=== PATIENT | male | born 1980 | race Caucasian/White ===

== ENCOUNTER 2017-10-02 11:06 | Emergency (ER) | payer SELFPAY ==
--- NOTE | 2017-10-02 11:26 | ER Document Report ---
ED Medical Screen (RME) - General Chief Complaint: Chest Pain Stated Complaint: CHEST PAIN Time Seen by Provider: 10/02/17 11:23 Mode of Arrival: Ambulatory Information source: Patient TRAVEL OUTSIDE OF THE [place] IN LAST 30 DAYS: No - HPI Patient complains to provider of: CP Onset: This morning - Pt developedd SSCP while at work earlier today ("feels like a wt. on my chest") with radiation down L arm. Has taken ASA already - Related Data Allergies/Adverse Reactions: No Known Allergies Allergy (Unverified 10/02/17 11:10) Past Medical History Renal/ Medical History: Denies: Hx Peritoneal Dialysis Physical Exam - Vital signs Vitals: Temp Pulse Resp BP Pulse Ox 97.8 F 100 20 134/92 H 99 10/02/17 11:09 10/02/17 11:09 10/02/17 11:09 10/02/17 11:09 10/02/17 11:09 Course - Vital Signs Vital signs: Temp Pulse Resp BP Pulse Ox 97.8 F 100 20 134/92 H 99 10/02/17 11:09 10/02/17 11:09 10/02/17 11:09 10/02/17 11:09 10/02/17 11:09
--- NOTE | 2017-10-02 11:46 | RADIOLOGY REPORT (SQ) ---
EXAM DESCRIPTION: CHEST PA/LAT COMPLETED DATE/TIME: 10/02/2017 11:37 am REASON FOR STUDY: CP COMPARISON: None. EXAM PARAMETERS: NUMBER OF VIEWS: two views TECHNIQUE: Digital Frontal and Lateral radiographic views of the chest acquired. RADIATION DOSE: NA LIMITATIONS: none FINDINGS: LUNGS AND PLEURA: No opacities, masses or pneumothorax. No pleural effusion. MEDIASTINUM AND HILAR STRUCTURES: No masses or contour abnormalities. HEART AND VASCULAR STRUCTURES: Heart normal size. No evidence for failure. BONES: No acute findings. HARDWARE: None in the chest. OTHER: On the lateral view, a 3 cm peripherally calcified nodule is present which could be a large ga llstone in the gallbladder. IMPRESSION: NO SIGNIFICANT RADIOGRAPHIC FINDING IN THE CHEST. Question calcified right upper quadrant gallstone at the bottom edge of the field of view TECHNICAL DOCUMENTATION: JOB ID: [id number] [employer] acquired by [employer]- All Rights Reserved
[2017-10-02 12:14] LABS: ABSOLUTE BASOPHILS # (AUTO) 0.1 10^3/uL (0.0-0.2); ABSOLUTE EOSINOPHILS # (AUTO) 0.3 10^3/uL (0.0-0.6); ABSOLUTE LYMPHOCYTES (AUTO) 2.4 10^3/uL (0.5-4.7); ABSOLUTE MONOCYTES (AUTO) 0.9 10^3/uL (0.1-1.4); ABSOLUTE NEUT (AUTO) 7.4 10^3/uL (1.7-8.2); BASOPHILS % (AUTO) 0.7 % (0-2); EOSINOPHILS % (AUTO) 2.8 % (0-6); HEMATOCRIT 43.9 % (37.9-51.0); HEMOGLOBIN 14.8 g/dL (13.5-17.0); HGB HCT DIFFERENCE 0.5; LYMPHOCYTES % (AUTO) 21.3 % (13-45); MEAN CORPUSCULAR HEMOGLOBIN 28.8 pg (27.0-33.4); MEAN CORPUSCULAR HGB CONC 33.8 g/dL (32.0-36.0); MEAN CORPUSCULAR VOLUME 85 fl (80-97); RED BLOOD COUNT 5.16 10^6/uL (4.35-5.55); SEGMENTED NEUTROPHILS % (AUTO) 67.2 % (42-78); WHITE BLOOD COUNT 11.1 10^3/uL (4.0-10.5)
[2017-10-02 12:36] LABS: ALANINE AMINOTRANSFERASE 40 U/L (21-72); ALBUMIN 4.4 g/dL (3.5-5.0); ALKALINE PHOSPHATASE 77 U/L (38-126); ANION GAP 12 (5-19); ASPARTATE AMINO TRANSFERASE 30 U/L (17-59); BILIRUBIN,DIRECT 0.4 mg/dL (0.0-0.4); BILIRUBIN,TOTAL 0.6 mg/dL (0.2-1.3); BLOOD UREA NITROGEN 16 mg/dL (7-20); CALCIUM 9.1 mg/dL (8.4-10.2); CARBON DIOXIDE 29 mmol/L (22-30); CHLORIDE 104 mmol/L (98-107); CREATINE KINASE 172 U/L (55-170); CREATININE RESULT 1.17 mg/dL (0.52-1.25); GLUCOSE 109 mg/dL (75-110); POTASSIUM 4.1 mmol/L (3.6-5.0); SODIUM 145.4 mmol/L (137-145); TOTAL PROTEIN 7.7 g/dL (6.3-8.2)
[2017-10-02 12:47] LABS: CREATINE KINASE MB 0.72 ng/mL (<4.55)
[2017-10-02 12:48] LABS: TROPONIN I < 0.012 ng/mL
--- NOTE | 2017-10-02 13:01 | EKG REPORT ---
SEVERITY:- ABNORMAL ECG - SINUS RHYTHM NONSPECIFIC T ABNORMALITIES, INFERIOR LEADS : Confirmed by: Misael Shipman MD 02-Oct-2017 13:00:38
[2017-10-02] MEDS ORDERED: NORMAL SALINE 1000 ML 1,000 ML IV ONE (13:19)
--- NOTE | 2017-10-02 14:44 | RADIOLOGY REPORT (SQ) ---
EXAM DESCRIPTION: U/S ABDOMEN LIMITED W/O DOP COMPLETED DATE/TIME: 10/02/2017 2:32 pm REASON FOR STUDY: ruq pain n/v COMPARISON: None. TECHNIQUE: Dynamic and static grayscale images acquired of the right upper quadrant and recorded on PACS. Additional selected color Doppler and spectral images recorded. LIMITATIONS: Study limited due to acoustical interference from fat or from air in the bowel. FINDINGS: PANCREAS: Not visualized. LIVER: No masses. Echotexture normal. LIVER VASCULATURE: Normal directional flow of the main portal vein and hepatic veins. GALLBLADDER: No stones. Normal wall thickness. No pericholecystic fluid. ULTRASOUND-DETECTED LANDAVERDE'S SIGN: Negative. INTRAHEPATIC DUCTS AND COMMON DUCT: CBD and intrahepatic ducts normal caliber. No filling defects. INFERIOR VENA CAVA: Normal flow. AORTA: No aneurysm. RIGHT KIDNEY: Normal size. Normal echogenicity. No solid or suspicious masses. No hydronephrosis. No calcifications. PERITONEAL CAVITY AND RIGHT PLEURAL SPACE: No ascites or effusions. OTHER: No other significant finding. IMPRESSION: NORMAL RIGHT UPPER QUADRANT ULTRASOUND. PANCREAS NOT VISUALIZED. TECHNICAL DOCUMENTATION: JOB ID: [id number] [employer]- All Rights Reserved
[2017-10-02 15:32] VITALS: BP 135/81
--- NOTE | 2017-10-02 15:40 | ER Document Report ---
ED General - General Chief Complaint: Chest Pain Stated Complaint: CHEST PAIN Time Seen by Provider: 10/02/17 11:23 Mode of Arrival: Ambulatory TRAVEL OUTSIDE OF THE [place] IN LAST 30 DAYS: No - HPI Patient complains to provider of: Abdominal pain chest pain Notes: Patient coming in for evaluation of chest pain also states on chronic abdominal pain. Patient states chest pain this morning upon awaking 6:00. Patient states had breakfast worsening of pain however when work pain continued to increase therefore came to the ER for further evaluation. Patient states has a history of diverticulitis patient has never seen a GI specialist before. Patient states he takes a handful of Aleve and Motrin to help out with his chronic pain. Patient states he is to be on Neurontin for his pain however since recently moving to the area is not substance of the PCP has not taken Neurontin "for a while". Denies any fevers chills states slight nauseous feeling with the pain. Patient also states pain this morning was in epigastric and right upper quadrant region. Patient resting comfortably upon my evaluation no signs of any obvious distress. Currently pain-free - Related Data Allergies/Adverse Reactions: No Known Allergies Allergy (Unverified 10/02/17 11:10) Past Medical History - General Information source: Patient - Social History Smoking Status: Never Smoker Chew tobacco use (# tins/day): No Frequency of alcohol use: None Drug Abuse: None Family History: Reviewed & Not Pertinent Patient has suicidal ideation: No Patient has homicidal ideation: No - Past Medical History Cardiac Medical History: Reports: Hx Hypercholesterolemia, Hx Hypertension Renal/ Medical History: Denies: Hx Peritoneal Dialysis Review of Systems - Review of Systems Constitutional: No symptoms reported EENT: No symptoms reported Cardiovascular: Chest pain Respiratory: No symptoms reported Gastrointestinal: Abdominal pain Genitourinary: No symptoms reported Male Genitourinary: No symptoms reported Musculoskeletal: No symptoms reported Skin: No symptoms reported Hematologic/Lymphatic: No symptoms reported Neurological/Psychological: No symptoms reported -: Yes All other systems reviewed and negative Physical Exam - Vital signs Vitals: Temp Pulse Resp BP Pulse Ox 97.8 F 100 20 134/92 H 99 10/02/17 11:09 10/02/17 11:09 10/02/17 11:09 10/02/17 11:09 10/02/17 11:09 Interpretation: Normal - General General appearance: Appears well, Alert - HEENT Head: Normocephalic, Atraumatic Eyes: Normal Pupils: PERRL - Respiratory Respiratory status: No respiratory distress Chest status: Nontender Breath sounds: Normal Chest palpation: Normal - Cardiovascular Rhythm: Regular Heart sounds: Normal auscultation Murmur: No - Abdominal Inspection: Normal Distension: No distension Bowel sounds: Normal Tenderness: Tender - Mild tenderness in her upper quadrant no rebound guarding noted McBurney point tenderness no Belle sign. Organomegaly: No organomegaly - Back Back: Normal, Nontender - Extremities General upper extremity: Normal inspection, Nontender, Normal color, Normal ROM , Normal temperature General lower extremity: Normal inspection, Nontender, Normal color, Normal ROM , Normal temperature, Normal weight bearing. No: Rick's sign - Neurological Neuro grossly intact: Yes Cognition: Normal Orientation: AAOx4 [place] Coma Scale Eye Opening: Spontaneous [place] Coma Scale Verbal: Oriented [place] Coma Scale Motor: Obeys Commands Diana Coma Scale Total: 15 Speech: Normal Motor strength normal: LUE, RUE, LLE, RLE Sensory: Normal - Psychological Associated symptoms: Normal affect, Normal mood - Skin Skin Temperature: Warm Skin Moisture: Dry Skin Color: Normal Course - Re-evaluation Re-evalutation: 10/02/17 15:49 The patient presents with abdominal pain without signs of peritonitis or other life-threatening or serious etiology. The patient appears stable for discharge and has been instructed to return immediately if the symptoms worsen in any way , or in 8-12hr if not improved for re-evaluation. The patient has been instructed to return if the symptoms worsen or change in any way. The patient has atypical chest pain as the patient's chest pain is not suggestive of pulmonary embolus, cardiac ischemia, aortic dissection, or other serious etiology. Given the extremely low risk of these diagnoses further testing and evaluation for these possibilities does not appear to be indicated at this time. The patient has been instructed to return if the symptoms worsen or change in any way. Due to patient's history of increased NSAID use more likely underlying gastritis. Patient was highly encouraged follow-up with GI specialist. Patient also requesting prescription for Neurontin which I did refill. Patient also given a prescription for Carafate patient is to continue his omeprazole increased to 40 mg once daily. Patient agrees this plan to review laboratory studies and x-ray and ultrasound reports with the patient. Agrees to follow-up PCP and gastroenterology per - Vital Signs Vital signs: Temp Pulse Resp BP Pulse Ox 98.2 F 74 16 135/81 H 98 10/02/17 15:32 10/02/17 15:32 10/02/17 15:32 10/02/17 15:32 10/02/17 15:32 - Laboratory Result Diagrams: 10/02/17 12:00 10/02/17 12:00 Laboratory results interpreted by me: 10/02/17 10/02/17 12:00 12:00 WBC 11.1 H Sodium 145.4 H Creatine Kinase 172 H Discharge - Discharge Clinical Impression: Pain in the chest Qualifiers: Chest pain type: unspecified Qualified Code(s): R07.9 - Chest pain, unspecified Condition: Good Disposition: HOME, SELF-CARE Instructions: Chest Pain of Unclear Cause ([facility]), Family Physicians / Practices , Gastritis ([facility]), Gastroenterology, Prilosec (Acid Pump Inhibitor) ([facility]) Additional Instructions: I believe her symptoms were due today to underlying gastritis. Your laboratory studies for other significant pathology are negative. There is no signs of cardiac ischemia no signs of gallbladder disease liver disease pancreatic disease or lung disease. The only thing I have a difficult time testing for here in the ER is your stomach. I would highly recommend with your history of diverticulosis that she follow-up with a GI specialist. I would also recommend she follow-up with 1 of the family care providers. I will start you back on your Neurontin. Return to the ER symptoms worsen. Please avoid foods that are high in fat grease or oil Prescriptions: Gabapentin [Neurontin 300 mg Capsule] 300 mg PO Q8 #90 cap Omeprazole 40 mg PO DAILY #30 capsule. Sucralfate [Carafate 1 gm Tablet] 1 gm PO ACHS #90 tablet Forms: Return to Work Referrals: SHERIE BOSWELL MD [ACTIVE STAFF] - Follow up as needed (Dr. Boswell is supervisor [employer] for ER today you may call his office for follow-up or 1 of the other providers listed.)
== END 2017-10-02 16:08 | disposition home or self-care (01) ==
LOC: ER 11:06
DX: R07.9 Chest pain, unspecified (principal); G89.29 Other chronic pain; R10.9 Unspecified abdominal pain; E78.00 Pure hypercholesterolemia, unspecified; I10 Essential (primary) hypertension
CPT/HCPCS: 93005; 99285; 96360; 36415; 82553; 82550; 83690; 85025; 80053; 84484; 71020; 76705; 93010; J7030

== ENCOUNTER 2018-07-28 10:26 | Emergency (ER) | payer SELFPAY ==
[2018-07-28 10:34] VITALS: BP 107/90
[2018-07-28] MEDS ORDERED: NORMAL SALINE 1000 ML 1,000 ML IV ONE (10:54)
[2018-07-28] MEDS ORDERED: ONDANSETRON HCL INJ/PF 4 MG/2 ML SDV IV ONE (10:54)
--- NOTE | 2018-07-28 10:55 | ER Document Report ---
ED Medical Screen (RME) - General Chief Complaint: Abdominal Pain Stated Complaint: ABDOMINAL PAIN Time Seen by Provider: 07/28/18 10:47 TRAVEL OUTSIDE OF THE [place] IN LAST 30 DAYS: No - HPI Notes: 07/28/18 10:54 Right upper right lower quadrant abdominal pain ongoing for 2 days. - Related Data Allergies/Adverse Reactions: No Known Allergies Allergy (Verified 07/28/18 10:26) Past Medical History - Social History Frequency of alcohol use: None Drug Abuse: None - Past Medical History Cardiac Medical History: Reports: Hx Hypercholesterolemia, Hx Hypertension Renal/ Medical History: Denies: Hx Peritoneal Dialysis Review of Systems - Review of Systems Gastrointestinal: Abdominal pain, Nausea, Vomiting -: Yes All other systems reviewed and negative Physical Exam - Vital signs Vitals: Temp Pulse Resp BP Pulse Ox 98.3 F 94 20 107/90 H 99 07/28/18 10:31 07/28/18 10:31 07/28/18 10:31 07/28/18 10:31 07/28/18 10:31 - Respiratory Respiratory status: No respiratory distress Chest status: Nontender Breath sounds: Normal Chest palpation: Normal - Cardiovascular Rhythm: Regular, Tachycardia Course - Vital Signs Vital signs: Temp Pulse Resp BP Pulse Ox 98.3 F 94 20 107/90 H 99 07/28/18 10:31 07/28/18 10:31 07/28/18 10:31 07/28/18 10:31 07/28/18 10:31
[2018-07-28 11:44] LABS: ABSOLUTE BASOPHILS # (AUTO) 0.1 10^3/uL (0.0-0.2); ABSOLUTE EOSINOPHILS # (AUTO) 0.2 10^3/uL (0.0-0.6); ABSOLUTE LYMPHOCYTES (AUTO) 2.3 10^3/uL (0.5-4.7); ABSOLUTE MONOCYTES (AUTO) 0.8 10^3/uL (0.1-1.4); ABSOLUTE NEUT (AUTO) 11.5 10^3/uL (1.7-8.2); BASOPHILS % (AUTO) 0.4 % (0-2); HEMATOCRIT 39.8 % (37.9-51.0); HEMOGLOBIN 13.4 g/dL (13.5-17.0); LYMPHOCYTES % (AUTO) 15.4 % (13-45); MEAN CORPUSCULAR HEMOGLOBIN 28.6 pg (27.0-33.4); MEAN CORPUSCULAR HGB CONC 33.5 g/dL (32.0-36.0); MEAN CORPUSCULAR VOLUME 85 fl (80-97); MONOCYTES % (AUTO) 5.4 % (3-13); PLATELET COUNT 387 10^3/uL (150-450); RED BLOOD COUNT 4.67 10^6/uL (4.35-5.55); RED CELL DISTRIBUTION WIDTH 13.5 % (11.5-14.0); SEGMENTED NEUTROPHILS % (AUTO) 77.8 % (42-78); TOTAL CELLS COUNTED % (AUTO) 100 %; WHITE BLOOD COUNT 14.8 10^3/uL (4.0-10.5)
[2018-07-28 12:10] LABS: ALANINE AMINOTRANSFERASE 29 U/L (21-72); ALBUMIN 4.2 g/dL (3.5-5.0); ALKALINE PHOSPHATASE 80 U/L (38-126); ANION GAP 11 (5-19); ASPARTATE AMINO TRANSFERASE 20 U/L (17-59); BILIRUBIN,DIRECT 0.3 mg/dL (0.0-0.4); BILIRUBIN,TOTAL 0.6 mg/dL (0.2-1.3); BLOOD UREA NITROGEN 14 mg/dL (7-20); CALCIUM 9.5 mg/dL (8.4-10.2); CARBON DIOXIDE 28 mmol/L (22-30); CHLORIDE 104 mmol/L (98-107); GLUCOSE 102 mg/dL (75-110); LIPASE 233.9 U/L (23-300); POTASSIUM 4.6 mmol/L (3.6-5.0); SODIUM 142.9 mmol/L (137-145); TOTAL PROTEIN 7.6 g/dL (6.3-8.2)
[2018-07-28 12:37] LABS: APPEARANCE,URINE SLIGHTLY-CLOUDY; BILIRUBIN,URINE NEGATIVE (NEGATIVE); COLOR,URINE YELLOW; GLUCOSE, URINE NEGATIVE (NEGATIVE); KETONES,URINE NEGATIVE (NEGATIVE); LEUKOCYTE ESTERASE,URINE NEGATIVE (NEGATIVE); NITRITE,URINE NEGATIVE (NEGATIVE); PROTEIN,URINE NEGATIVE (NEGATIVE); URINE SPECIFIC GRAVITY 1.019; UROBILINOGEN,URINE NEGATIVE mg/dL (<2.0)
--- NOTE | 2018-07-28 12:46 | ER Document Report ---
ED General - General Chief Complaint: Abdominal Pain Stated Complaint: ABDOMINAL PAIN Time Seen by Provider: 07/28/18 10:47 Notes: 37-year-old male with history of gallstones presents to the ER with a 2 day history of right upper and lower quadrant tenderness. She has had similar episodes before with his gallbladder. He has had some nausea and occasional episode of vomiting for the last 2 days. Denies diarrhea denies black bloody or tarry stools denies chest pains or shortness of breath. CT was ordered from triage will check some generalized lab work. TRAVEL OUTSIDE OF THE [place] IN LAST 30 DAYS: No - Related Data Allergies/Adverse Reactions: No Known Allergies Allergy (Verified 07/28/18 10:26) Past Medical History - Social History Smoking Status: Never Smoker Frequency of alcohol use: None Drug Abuse: None Family History: Reviewed & Not Pertinent Patient has suicidal ideation: No Patient has homicidal ideation: No - Past Medical History Cardiac Medical History: Reports: Hx Hypercholesterolemia, Hx Hypertension Renal/ Medical History: Denies: Hx Peritoneal Dialysis Physical Exam - Vital signs Vitals: Temp Pulse Resp BP Pulse Ox 98.3 F 94 20 107/90 H 99 07/28/18 10:31 07/28/18 10:31 07/28/18 10:31 07/28/18 10:31 07/28/18 10:31 Course - Re-evaluation Re-evalutation: 07/28/18 13:53 The patient arrives with similar right upper quadrant abdominal pain that he has had in the past. Pt does have gallstones. There is no pericholecystic fluid or LFT elevations. There is a mild leukocytosis. Patient has been here for this prior. The patient about biliary colic. Elective follow-up with a surgeon. The patient initially told me he has not had narcotic prescriptions in 3 months. I pulled his narcotic registry and he had buprenorphine prescribed about 2 weeks ago. Also on July 06 he had 60 oxycodone prescribed. The patient was not completely honest with me about this. I spoke with him that I will not prescribe him any additional narcotic medicine. There is always a possibility that there may be some underlying opioid seeking dependency here. Give him referral to surgery for his biliary colic. - Vital Signs Vital signs: Temp Pulse Resp BP Pulse Ox 98.3 F 94 20 107/90 H 99 07/28/18 10:31 07/28/18 10:31 07/28/18 10:31 07/28/18 10:31 07/28/18 10:31 - Laboratory Result Diagrams: 07/28/18 11:22 07/28/18 11:22 Laboratory results interpreted by me: 07/28/18 11:22 WBC 14.8 H Hgb 13.4 L Absolute Neutrophils 11.5 H - Diagnostic Test Radiology reviewed: Reports reviewed Radiology results interpreted by me: 07/28/18 13:53 Abdomen/Pelvis CT 07/28/18 10:54 IMPRESSION: 1. Cholelithiasis. 2. Nonobstructing left renal calculus. Discharge - Discharge Clinical Impression: Recurrent biliary colic Condition: Good Disposition: HOME, SELF-CARE Instructions: Gallbladder Disease ([facility]) Prescriptions: Ondansetron [Zofran Odt 4 mg Tablet] 1 - 2 tab PO Q4HP PRN #10 tab.rapdis PRN Reason: Dicyclomine HCl [Bentyl 20 mg Tablet] 20 mg PO QID #40 tablet Referrals: ZITA REED MD [MEGAN LEGGETT] - Follow up as needed
--- NOTE | 2018-07-28 12:51 | RADIOLOGY REPORT (SQ) ---
EXAM DESCRIPTION: CT ABD/PELVIS WITH IV ONLY COMPLETED DATE/TIME: 07/28/2018 12:29 pm REASON FOR STUDY: right sided abd pain COMPARISON: None. TECHNIQUE: CT scan of the abdomen and pelvis performed using helical scanning technique with dynamic intravenous contrast injection. No oral contrast. Images reviewed with lung, soft tissue, and bone windows. Reconstructed coronal and sagittal MPR images reviewed. Delayed images for evaluation of the urinary system also acquired. All images stored on PACS. All CT scanners at this facility use dose modulation, iterative reconstruction, and/or weight based d osing when appropriate to reduce radiation dose to as low as reasonably achievable (ALARA). [facility]: Dose Right [facility]: CareDose [facility]: Dose Right [facility]: Teradose 4D [facility]: DarkWorks CONTRAST TYPE AND DOSE: contrast/concentration: Isovue 350.00 mg/ml; Total Contrast Delivered: 100.0 ml; Total Saline Delivered: 72.0 ml RENAL FUNCTION: BUN 14 creatinine 1.07 RADIATION DOSE: CT Rad equipment meets quality standard of care and radiation dose reduction techniq ues were employed. CTDIvol: 21.1 mGy. DLP: 2561 mGy-cm.. LIMITATIONS: None. FINDINGS: LOWER CHEST: No significant findings. No nodules or infiltrates. LIVER: Normal size. No masses. No dilated ducts. SPLEEN: Normal size. No focal lesions. PANCREAS: No masses. No significant calcifications. No adjacent inflammation or peripancreatic fluid collections. Pancreatic duct not dilated. GALLBLADDER: Gallstones. No inflammatory changes to suggest cholecystitis. ADRENAL GLANDS: No significant masses or asymmetry. RIGHT KIDNEY AND URETER: No solid masses. No significant calcifications. No hydronephrosis or hyd roureter. LEFT KIDNEY AND URETER: No solid masses. 3 mm renal calculus. No hydronephrosis or hydroureter. AORTA AND VESSELS: No aneurysm. No dissection. Renal arteries, SMA, celiac without stenosis. RETROPERITONEUM: No retroperitoneal adenopathy, hemorrhage or masses. BOWEL AND PERITONEAL CAVITY: No masses or inflammatory changes. No free fluid or peritoneal masses. APPENDIX: Normal. PELVIS: No mass. No free fluid. Normal bladder. ABDOMINAL WALL: No masses. No hernias. BONES: No significant or acute findings. OTHER: No other significant finding. IMPRESSION: 1. Cholelithiasis. 2. Nonobstructing left renal calculus. TECHNICAL DOCUMENTATION: JOB ID: [id number] Quality ID # [id number]: Final reports with documentation of one or more dose reduction techniques (e.g., Au tomated exposure control, adjustment of the mA and/or kV according to patient size, use of iterative reconstruction technique) 2010 [employer]- All Rights Reserved Reading location - IP/workstation name: [email or web address]
[2018-07-28] MEDS ORDERED: DEXAMETHASONE SOD PHOS INJ 10 MG/1 ML VIAL IM ONE (14:11)
--- NOTE | 2018-07-28 14:12 | ER Document Report ---
Doctor's Note Notes: 07/28/18 14:11 The patient stated that his left foot was also bothering him after discharge he states he usually gets a gout attack some discomfort near the toes. There is some mild discomfort on exam the patient was given a dose of IM Decadron here and advised to take NSAIDs at home
== END 2018-07-28 14:25 | disposition home or self-care (01) ==
LOC: ER 10:26
DX: K80.20 Calculus of gallbladder without cholecystitis without obstruction (principal); M79.672 Pain in left foot
CPT/HCPCS: 99284; 96372; 96361; 96374; 36415; 83690; 85025; 80053; 81001; 74177; J2405; J7030; J1100

== ENCOUNTER 2018-07-30 13:55 | Observation (INO) | payer SELFPAY ==
[2018-07-30] MEDS ORDERED: ONDANSETRON HCL INJ/PF 4 MG/2 ML SDV IV ONE (15:11)
[2018-07-30] MEDS ORDERED: HYDROMORPHONE HCL INJ/PF 2 MG/ML AMPULE IV ONE ×2 (15:11→18:34)
[2018-07-30] MEDS ORDERED: NORMAL SALINE 1000 ML 1,000 ML IV ONE ×2 (15:11→19:22)
--- NOTE | 2018-07-30 15:12 | ER Document Report ---
ED Medical Screen (RME) - General Chief Complaint: Abdominal Pain Stated Complaint: ABDOMINAL PAIN Time Seen by Provider: 07/30/18 15:03 Mode of Arrival: Ambulatory Information source: Patient, Relative, [facility] Records Notes: 37-year-old male with gout, known gallstones, hypertension, hyperlipidemia presents with complaint of right upper quadrant and epigastric abdominal pain, nausea, vomiting. Patient was seen 2 days prior to arrival when a CAT scan was performed which did show gallstones. He states since that time he has had worsening of his pain and has had multiple episodes of vomiting, diarrhea and chills. Patient did arrange for surgical evaluation with Dr. Keene. He called the office earlier today to let him know about the increased pain and vomiting and he was advised to come to the emergency department "and asked to see a surgeon." I have greeted and performed a rapid initial assessment of this patient. A comprehensive ED assessment and evaluation of the patient, analysis of test results and completion of medical decision making process we will be contacted by additional ED providers. General; appears to be in pain HEENT; normocephalic atraumatic Resp: Respiratory distress. Abd: Pain with palpation to the right upper quadrant. TRAVEL OUTSIDE OF THE [place] IN LAST 30 DAYS: No - HPI Onset: Other Onset/Duration: Gradual, Persistent, Worse Associated Symptoms: Nausea Exacerbated by: Food Relieved by: Denies Similar symptoms previously: Yes Recently seen / treated by doctor: Yes - 07/28/18 - Related Data Smoking: Non-smoker Frequency of alcohol use: None Drug Abuse: None Allergies/Adverse Reactions: No Known Allergies Allergy (Verified 07/28/18 10:26) Past Medical History - Social History Chew tobacco use (# tins/day): No Frequency of alcohol use: None Drug Abuse: None - Past Medical History Cardiac Medical History: Reports: Hx Hypercholesterolemia, Hx Hypertension Renal/ Medical History: Reports: Hx Kidney Stones. Denies: Hx Peritoneal Dialysis Physical Exam - Vital signs Vitals: Temp Pulse BP Pulse Ox 97.6 F 89 140/95 H 98 07/30/18 14:15 07/30/18 14:15 07/30/18 14:15 07/30/18 14:15 Course - Vital Signs Vital signs: Temp Pulse Resp BP Pulse Ox 97.6 F 89 140/95 H 98 07/30/18 14:15 07/30/18 14:15 07/30/18 14:15 07/30/18 14:15
[2018-07-30 15:14] LABS: APPEARANCE,URINE CLEAR; BILIRUBIN,URINE NEGATIVE (NEGATIVE); COLOR,URINE YELLOW; GLUCOSE, URINE NEGATIVE (NEGATIVE); KETONES,URINE NEGATIVE (NEGATIVE); LEUKOCYTE ESTERASE,URINE NEGATIVE (NEGATIVE); NITRITE,URINE NEGATIVE (NEGATIVE); PROTEIN,URINE NEGATIVE (NEGATIVE); URINE SPECIFIC GRAVITY 1.014; UROBILINOGEN,URINE NEGATIVE mg/dL (<2.0)
--- NOTE | 2018-07-30 16:12 | RADIOLOGY REPORT (SQ) ---
EXAM DESCRIPTION: U/S ABDOMEN LIMITED W/O DOP COMPLETED DATE/TIME: 07/30/2018 3:59 pm REASON FOR STUDY: ruq pain COMPARISON: Abdominal CT scan dated 07/28/2018 and abdominal ultrasound dated September 2017 TECHNIQUE: Dynamic and static grayscale images acquired of the abdomen and recorded on PACS. Additio nal selected color Doppler and spectral images recorded. LIMITATIONS: Study is limited somewhat due to the patient's body habitus and overlying bowel gas FINDINGS: PANCREAS: No masses. Visualized pancreatic duct normal caliber. LIVER: No masses. Echotexture normal. LIVER VASCULATURE: Normal directional flow of the main portal vein. GALLBLADDER: Large gallstone is identified which correlates with the CT findings. There is borderlin e gallbladder wall thickening. No pericholecystic fluid. ULTRASOUND-DETECTED LANDAVERDE'S SIGN: Negative. INTRAHEPATIC DUCTS AND COMMON DUCT: CBD and intrahepatic ducts normal caliber. No filling defects. INFERIOR VENA CAVA: Normal flow. AORTA: No aneurysm. RIGHT KIDNEY: 10.3 cm in length. Normal echogenicity. No solid or suspicious masses. No hydronephros is. No calcifications. PERITONEAL AND RIGHT PLEURAL SPACE: No ascites or effusions. OTHER: No other significant findings. IMPRESSION: Findings consistent with large gallstone which correlates with the CT findings. There i s borderline gallbladder wall thickening. No other significant intra-abdominal abnormalities were id entified. Other findings as noted above TECHNICAL DOCUMENTATION: JOB ID: [id number] [employer]- All Rights Reserved Reading location - IP/workstation name: [email or web address]
[2018-07-30 16:27] LABS: ABSOLUTE BASOPHILS # (AUTO) 0.1 10^3/uL (0.0-0.2); ABSOLUTE EOSINOPHILS # (AUTO) 0.4 10^3/uL (0.0-0.6); ABSOLUTE LYMPHOCYTES (AUTO) 3.5 10^3/uL (0.5-4.7); ABSOLUTE MONOCYTES (AUTO) 1.1 10^3/uL (0.1-1.4); ABSOLUTE NEUT (AUTO) 9.2 10^3/uL (1.7-8.2); BASOPHILS % (AUTO) 0.6 % (0-2); EOSINOPHILS % (AUTO) 2.8 % (0-6); HEMATOCRIT 41.7 % (37.9-51.0); HEMOGLOBIN 13.8 g/dL (13.5-17.0); LYMPHOCYTES % (AUTO) 24.5 % (13-45); MEAN CORPUSCULAR HEMOGLOBIN 28.2 pg (27.0-33.4); MEAN CORPUSCULAR HGB CONC 33.2 g/dL (32.0-36.0); MEAN CORPUSCULAR VOLUME 85 fl (80-97); MONOCYTES % (AUTO) 7.4 % (3-13); PLATELET COUNT 419 10^3/uL (150-450); RED CELL DISTRIBUTION WIDTH 13.7 % (11.5-14.0); SEGMENTED NEUTROPHILS % (AUTO) 64.7 % (42-78); TOTAL CELLS COUNTED % (AUTO) 100 %; WHITE BLOOD COUNT 14.2 10^3/uL (4.0-10.5)
[2018-07-30 16:50] LABS: ALANINE AMINOTRANSFERASE 35 U/L (21-72); ALBUMIN 4.1 g/dL (3.5-5.0); ALKALINE PHOSPHATASE 69 U/L (38-126); ANION GAP 9 (5-19); ASPARTATE AMINO TRANSFERASE 44 U/L (17-59); BILIRUBIN,DIRECT 0.5 mg/dL (0.0-0.4); BILIRUBIN,TOTAL 0.5 mg/dL (0.2-1.3); BLOOD UREA NITROGEN 18 mg/dL (7-20); CALCIUM 9.4 mg/dL (8.4-10.2); CARBON DIOXIDE 31 mmol/L (22-30); CHLORIDE 102 mmol/L (98-107); GLUCOSE 72 mg/dL (75-110); LIPASE 371.5 U/L (23-300); SODIUM 142.4 mmol/L (137-145); TOTAL PROTEIN 7.9 g/dL (6.3-8.2)
--- NOTE | 2018-07-30 18:23 | ER Document Report ---
ED General - General Chief Complaint: Abdominal Pain Stated Complaint: ABDOMINAL PAIN Time Seen by Provider: 07/30/18 15:03 Mode of Arrival: Ambulatory Notes: Patient is a 37-year-old male that presents to the emergency department for chief complaint of right upper quadrant pain. Patient reports that she was seen earlier in the week, diagnosed with cholelithiasis, discharged home to follow-up with the surgeon, but his symptoms have worsened since that time, he is been having vomiting, and worsened abdominal pain so we decided to come back to the emergency department, he did call the surgeon's office and they recommended him to come to the ED. He rates his pain currently as a 9 out of 10 , describes it as sharp and intermittent, but he has a background constant aching sensation in his right upper quadrant of his abdomen. He denies having any dysuria, hematuria, chest pain, shortness of breath, fevers, chills or night sweats. Past Medical History: Gout Past Surgical History: Denies surgical history Social History: Denies tobacco, alcohol or drug use Family History: Reviewed and noncontributory for presenting illness Allergies: Reviewed, see documented allergy list. REVIEW OF SYSTEMS: Unless otherwise stated in this report the patient's positive and negative responses for review of systems for constitutional, eyes, ENT, cardiovascular, respiratory, gastrointestinal, neurological, genitourinary, musculoskeletal, and integumentary systems and related systems to the presenting problem are either as stated in the HPI or were not pertinent or were negative for the symptoms and/or complaints related to the presenting medical problem. PHYSICAL EXAMINATION: Vital signs reviewed, nursing noted reviewed. GENERAL: Well-appearing, well-nourished and in no acute distress. HEAD: Atraumatic, normocephalic. EYES: Eyes appear normal, extraocular movements intact, sclera anicteric, conjunctiva are normal. ENT: nares patent, oropharynx clear without exudates. Moist mucous membranes. NECK: Normal range of motion, supple without lymphadenopathy LUNGS: Breath sounds clear to auscultation bilaterally and equal. No wheezes rales or rhonchi. HEART: Regular rate and rhythm without murmurs ABDOMEN: Soft, obese, right upper quadrant tenderness to palpation, positive Belle sign, normoactive bowel sounds. No rebound, guarding, or rigidity. No masses appreciated. EXTREMITIES: Nontender, good range of motion, no pitting or edema. NEUROLOGICAL: No focal neurological deficits. Moves all extremities spontaneously Motor and sensory grossly intact on exam. PSYCH: Normal mood, normal affect. SKIN: Warm, Dry, normal turgor, no rashes or lesions noted on exposed skin TRAVEL OUTSIDE OF THE [place] IN LAST 30 DAYS: No - Related Data Allergies/Adverse Reactions: No Known Allergies Allergy (Verified 07/28/18 10:26) Past Medical History - General Information source: Patient, Relative, [facility] Records - Social History Smoking Status: Unknown if Ever Smoked Chew tobacco use (# tins/day): No Frequency of alcohol use: None Drug Abuse: None Family History: Reviewed & Not Pertinent Patient has suicidal ideation: No Patient has homicidal ideation: No - Past Medical History Cardiac Medical History: Reports: Hx Hypercholesterolemia, Hx Hypertension Renal/ Medical History: Reports: Hx Kidney Stones. Denies: Hx Peritoneal Dialysis Physical Exam - Vital signs Vitals: Temp Pulse BP Pulse Ox 97.6 F 89 140/95 H 98 07/30/18 14:15 07/30/18 14:15 07/30/18 14:15 07/30/18 14:15 Course - Re-evaluation Re-evalutation: Patient seen and examined vital signs reviewed. Laboratory data and imaging were ordered as appropriate for the patient's presenting symptoms and complaint, with consideration of any critical or life threatening conditions that may be associated with their obtained history and exam as noted above. Patient was treated with IV fluids, Zosyn, Dilaudid, and Zofran Results were reviewed when available and demonstrated cholelithiasis, with thickened gallbladder wall, blood work demonstrated leukocytosis, and elevated lipase, that was not elevated on labs from 2 days ago. The patient was re-evaluated and was still having some pain, additional IV Dilaudid was ordered Evaluation was most consistent with acute cholecystitis Results were discussed with the patient at this point after careful consideration I feel that that patient should be admitted to the hospital. This was discussed with the patient that it is in the best interest for their care to be admitted for further evaluation and management. Patient agreed with this plan of care. A call was placed to the admitted physician, Dr. Bullock who graciously accepted the patient onto their service. *Note is created using voice recognition software and may contain spelling, syntax or grammatical errors. - Vital Signs Vital signs: Temp Pulse Resp BP Pulse Ox 98.3 F 85 16 140/87 H 97 07/30/18 21:47 07/30/18 21:47 07/30/18 21:47 07/30/18 21:47 07/30/18 21:47 - Laboratory Result Diagrams: 07/30/18 16:16 07/30/18 16:16 Laboratory results interpreted by me: 07/30/18 07/30/18 07/30/18 14:00 16:16 16:16 WBC 14.2 H Absolute Neutrophils 9.2 H Carbon Dioxide 31 H Glucose 72 L Direct Bilirubin 0.5 H Lipase 371.5 H Urine Blood SMALL H Discharge - Discharge Clinical Impression: Acute cholecystitis Leukocytosis Qualifiers: Leukocytosis type: unspecified Qualified Code(s): D72.829 - Elevated white blood cell count, unspecified Condition: Stable Disposition: ADMITTED INPATIENT Admitting Provider: Surgicalist - Dr. Bullock Unit Admitted: Surgical Floor
[2018-07-30] MEDS ORDERED: PIPERACILLIN/TAZOBACTAM 3.375 GM VIAL IV ONE ×2 (19:03→19:31)
--- NOTE | 2018-07-30 19:15 | PDOC H&P ---
History of Present Illness Admission Date/PCP: 07/30/18 Patient complains of: RUQ pains History of Present Illness: VANDANA DOUGHERTY is a 37 year old male c/o RUQ pains past 2-3 days associated with nausea. Initially seen in ED about 2 days ago and sent home. and follow up in the surgical clinic. Today pains got worse and associated with nausea and chills. US of gallbladder showed a large stone with slightly thickened wall. Past Medical History Cardiac Medical History: Reports: Hyperlipidema, Hypertension Past Surgical History Past Surgical History: Reports: None Social History Smoking Status: Unknown if Ever Smoked Frequency of Alcohol Use: None Hx Recreational Drug Use: No Family History Family History: Reviewed & Not Pertinent Parental Family History Reviewed: Yes Children Family History Reviewed: No Sibling(s) Family History Reviewed.: Yes Medication/Allergy Home Medications: Buprenorphine HCl [Subutex 8 mg Sublingual Tablet] 1 tab SL DAILY 07/28/18 Dicyclomine HCl [Bentyl 20 mg Tablet] 20 mg PO QID #40 tablet 07/28/18 Gabapentin [Neurontin 300 mg Capsule] 600 mg PO TID 07/28/18 Ondansetron [Zofran Odt 4 mg Tablet] 1 - 2 tab PO Q4HP PRN #10 tab.rapdis Allergies/Adverse Reactions: No Known Allergies Allergy (Verified 07/28/18 10:26) Review of Systems Constitutional: PRESENT: chills Eyes: PRESENT: other - no visual/hearing changes Cardiovascular: PRESENT: other - no chest pains/cough Gastrointestinal: PRESENT: abdominal pain - RUQ, nausea Genitourinary: PRESENT: other - no dysuria Neurological: PRESENT: other - no seizures Hematologic/Lymphatic: PRESENT: other - no easy bruising Physical Exam Vital Signs: Temp Pulse Resp BP Pulse Ox 97.6 F 89 140/95 H 98 07/30/18 14:15 07/30/18 14:15 07/30/18 14:15 07/30/18 14:15 Intake & Output 07/29/18 07/30/18 07/31/18 06:59 06:59 06:59 Intake Total 1000 Balance 1000 Weight 149.3 kg General appearance: PRESENT: obese Head exam: PRESENT: atraumatic Eye exam: PRESENT: conjunctiva pink Mouth exam: PRESENT: moist Neck exam: PRESENT: full ROM Respiratory exam: PRESENT: clear to auscultation tamara Cardiovascular exam: PRESENT: RRR Pulses: PRESENT: normal radial pulses Vascular exam: PRESENT: normal capillary refill GI/Abdominal exam: PRESENT: soft, tenderness - RUQ Rectal exam: PRESENT: deferred Extremities exam: PRESENT: full ROM Musculoskeletal exam: PRESENT: ambulatory Neurological exam: PRESENT: alert, oriented to person, oriented to place, oriented to time, oriented to situation Psychiatric exam: PRESENT: appropriate affect Skin exam: PRESENT: normal color, warm Results Laboratory Results: 07/30/18 16:16 07/30/18 16:16 07/30/18 07/30/18 07/30/18 14:00 16:16 16:16 WBC 14.2 H RBC 4.90 Hgb 13.8 Hct 41.7 MCV 85 MCH 28.2 MCHC 33.2 RDW 13.7 Plt Count 419 Seg Neutrophils % 64.7 Lymphocytes % 24.5 Monocytes % 7.4 Eosinophils % 2.8 Basophils % 0.6 Absolute Neutrophils 9.2 H Absolute Lymphocytes 3.5 Absolute Monocytes 1.1 Absolute Eosinophils 0.4 Absolute Basophils 0.1 Sodium 142.4 Potassium 4.0 Chloride 102 Carbon Dioxide 31 H Anion Gap 9 BUN 18 Creatinine 1.23 Est GFR ( Amer) > 60 Est GFR (Non-Af Amer) > 60 Glucose 72 L Calcium 9.4 Total Bilirubin 0.5 AST 44 ALT 35 Alkaline Phosphatase 69 Total Protein 7.9 Albumin 4.1 Lipase 371.5 H Urine Color YELLOW Urine Appearance CLEAR Urine pH 5.0 Ur Specific [place] 1.014 Urine Protein NEGATIVE Urine Glucose (UA) NEGATIVE Urine Ketones NEGATIVE Urine Blood SMALL H Urine Nitrite NEGATIVE Ur Leukocyte Esterase NEGATIVE Urine WBC (Auto) 1 Urine RBC (Auto) 4 Impressions: Abdomen Ultrasound 07/30/18 15:11 IMPRESSION: Findings consistent with large gallstone which correlates with the CT findings. There is borderline gallbladder wall thickening. No other significant intra-abdominal abnormalities were identified. Other findings as noted above Assessment & Plan - Diagnosis (1) Acute cholecystitis Is this a current diagnosis for this admission?: Yes (2) Cholelithiasis Qualifiers: Cholecystitis presence: with cholecystitis Is this a current diagnosis for this admission?: Yes - Time Time Spent: 30 to 50 Minutes - Inpatient Certification Medical Necessity: Need For IV Fluids, Need for Pain Control, Need for IV Antibiotics, Need for Surgery - Plan Summary Plan Summary: NPO from Midnite OK to have low fat full liquids Hydrate Start IV Antibiotics For LAp Rea in am.
[2018-07-30] MEDS ORDERED: PIPERACILLIN SODIUM/TAZOBACTAM 3.375 GM in NORMAL SALINE 100 ML IV ONE (20:00)
[2018-07-30] MEDS: DEXTROSE 5%-LACTATED RINGERS 1,000 ML IV PRN (22:38)
[2018-07-30] MEDS: HYDROMORPHONE HCL INJ/PF 2 MG/ML AMPULE IV PRN (22:43)
[2018-07-31] MEDS: HYDROMORPHONE HCL INJ/PF 2 MG/ML AMPULE IV PRN ×6 (01:42→21:09)
[2018-07-31] MEDS: DEXTROSE 5%-LACTATED RINGERS 1,000 ML IV PRN ×3 (05:21→18:08)
[2018-07-31 05:27] LABS: ABSOLUTE BASOPHILS # (AUTO) 0.1 10^3/uL (0.0-0.2); ABSOLUTE EOSINOPHILS # (AUTO) 0.4 10^3/uL (0.0-0.6); ABSOLUTE LYMPHOCYTES (AUTO) 2.7 10^3/uL (0.5-4.7); ABSOLUTE MONOCYTES (AUTO) 0.8 10^3/uL (0.1-1.4); ABSOLUTE NEUT (AUTO) 6.7 10^3/uL (1.7-8.2); BASOPHILS % (AUTO) 0.7 % (0-2); EOSINOPHILS % (AUTO) 3.6 % (0-6); HEMATOCRIT 36.6 % (37.9-51.0); HEMOGLOBIN 12.4 g/dL (13.5-17.0); LYMPHOCYTES % (AUTO) 25.4 % (13-45); MEAN CORPUSCULAR HEMOGLOBIN 28.7 pg (27.0-33.4); MEAN CORPUSCULAR HGB CONC 33.9 g/dL (32.0-36.0); MEAN CORPUSCULAR VOLUME 85 fl (80-97); MONOCYTES % (AUTO) 7.7 % (3-13); PLATELET COUNT 348 10^3/uL (150-450); RED BLOOD COUNT 4.33 10^6/uL (4.35-5.55); RED CELL DISTRIBUTION WIDTH 13.6 % (11.5-14.0); SEGMENTED NEUTROPHILS % (AUTO) 62.6 % (42-78); TOTAL CELLS COUNTED % (AUTO) 100 %; WHITE BLOOD COUNT 10.6 10^3/uL (4.0-10.5)
[2018-07-31 05:36] LABS: INTERNATIONAL RATION (INR) 0.97; PROTHROMBIN TIME 13.4 SEC (11.4-15.4)
[2018-07-31] MEDS ORDERED: ACETAMINOPHEN 325 MG TABLET ONE (05:58)
[2018-07-31 05:59] LABS: ALANINE AMINOTRANSFERASE 36 U/L (21-72); ALBUMIN 3.3 g/dL (3.5-5.0); ALKALINE PHOSPHATASE 55 U/L (38-126); ANION GAP 8 (5-19); ASPARTATE AMINO TRANSFERASE 17 U/L (17-59); BILIRUBIN,DIRECT 0.3 mg/dL (0.0-0.4); BILIRUBIN,TOTAL 0.3 mg/dL (0.2-1.3); BLOOD UREA NITROGEN 19 mg/dL (7-20); CALCIUM 9.4 mg/dL (8.4-10.2); CARBON DIOXIDE 29 mmol/L (22-30); CHLORIDE 104 mmol/L (98-107); GLUCOSE 119 mg/dL (75-110); LIPASE 386.1 U/L (23-300); POTASSIUM 4.5 mmol/L (3.6-5.0); SODIUM 141.4 mmol/L (137-145); TOTAL PROTEIN 6.2 g/dL (6.3-8.2)
[2018-07-31] MEDS ORDERED: ACETAMINOPHEN 325 MG TABLET PO ONE (06:30)
[2018-07-31] MEDS ORDERED: BUPIVACAINE HCL 0.25% /EPINEPHRINE INJ/PF 30 ML SDV ONE (08:08)
[2018-07-31] MEDS ORDERED: FENTANYL CITRATE INJ/PF 250 MCG/5 ML AMPULE ONE (08:43)
[2018-07-31] MEDS ORDERED: EPHEDRINE SULFATE INJ 50 MG/1 ML AMPULE ONE (08:43)
[2018-07-31] MEDS ORDERED: DEXMEDETOMIDINE INJ 80 MCG/20 ML VIAL IV ONE (08:43)
[2018-07-31] MEDS ORDERED: MIDAZOLAM 2 MG/2 ML INJ ONE (08:43)
[2018-07-31] MEDS ORDERED: PROPOFOL INJ 200 MG/20 ML VIAL IV ONE (08:44)
[2018-07-31] MEDS ORDERED: ACETAMINOPHEN 1,000 MG/100 ML RTUPB IV ONE (08:44)
[2018-07-31] MEDS ORDERED: CEFAZOLIN INJ 1 GM VIAL ONE (09:03)
[2018-07-31] MEDS ORDERED: MEPERIDINE HCL/PF INJ 25 MG/1 ML DISP.SYRIN IV PRN (10:26)
[2018-07-31] MEDS ORDERED: DIPHENHYDRAMINE HCL 50 MG/ML VIAL IV PRN (10:26)
[2018-07-31] MEDS ORDERED: PROMETHAZINE HCL INJ 25 MG/1 ML VIAL IV PRN ×2 (10:26)
[2018-07-31] MEDS ORDERED: FENTANYL CITRATE INJ/PF 100 MCG/2 ML AMPUL IV PRN ×3 (10:26)
[2018-07-31] MEDS ORDERED: ONDANSETRON HCL INJ/PF 4 MG/2 ML SDV IV PRN (10:26)
[2018-07-31] MEDS ORDERED: FENTANYL CITRATE INJ/PF 100 MCG/2 ML AMPUL ONE (11:06)
[2018-07-31] MEDS: OXYCODONE-ACETAMINOPHEN 5-325 MG TABLET PO PRN ×3 (12:20→20:20)
[2018-07-31] MEDS ORDERED: METOCLOPRAMIDE HCL INJ/PF 10 MG/2 ML SDV ONE (14:45)
[2018-07-31] MEDS ORDERED: ROCURONIUM BROMIDE INJ 50 MG/5 ML VIAL IV ONE (14:45)
[2018-07-31] MEDS ORDERED: NEOSTIGMINE METHYLSULFATE 10 MG/10 ML VIAL ONE (14:45)
[2018-07-31] MEDS ORDERED: ONDANSETRON HCL INJ/PF 4 MG/2 ML SDV ONE (14:45)
[2018-07-31] MEDS ORDERED: SUCCINYLCHOLINE CHLORIDE INJ 200 MG/10 ML VIAL ONE (14:45)
[2018-07-31] MEDS ORDERED: DEXAMETHASONE SOD PHOSPHATE INJ 4 MG/1 ML VIAL ONE (14:45)
[2018-07-31] MEDS ORDERED: KETOROLAC TROMETHAMINE 60 MG/2 ML SDV ONE (14:45)
[2018-07-31] MEDS ORDERED: GLYCOPYRROLATE 1 MG/5 ML SYRINGE ONE (14:45)
--- NOTE | 2018-07-31 15:10 | OPERATIVE REPORT E ---
Operative Report NAME: VANDANA DOUGHERTY : 1980 AGE: 37Y DATE OF SURGERY: 07/31/2018 ROOM: 431 PREOPERATIVE DIAGNOSIS: Acute cholecystitis/cholelithiasis. POSTOPERATIVE DIAGNOSIS: Acute cholecystitis/cholelithiasis. OPERATION: Laparoscopic cholecystectomy. SURGEON: ZITA REED M.D. ANESTHESIA: General. INDICATION: This is a 37-year-old male complaining of right upper quadrant pains for the past few days. He had an ultrasound of the gallbladder which showed a large gallstone with some thickening of the wall. His white count was elevated to 14,000 when he was admitted last night. He is markedly tender in the right upper quadrant. DESCRIPTION OF PROCEDURE: After adequate IV general anesthesia, the patient was placed in the supine position and the abdomen prepped and draped in the usual sterile fashion. Appropriate timeout was then called. Next, the infraumbilical incision made and the fascia identified and grasped with Yunier clamps on each side and divided between the Yunier clamps. The abdominal cavity was then entered with a hemostat and further finger dilated, and underneath I was able to pass through the peritoneum. The patient is morbidly obese and has a thick fat pad. However, we were able to use a regular Jordon trocar. CO2 was then insufflated through the trocar to a pressure of 15 mmHg, and 3 other trocars were placed under direct vision, a 12 mm in the subxiphoid and two 5 mm in the right upper quadrant. The gallbladder noted to be thickened, but we were able to grasp. There were a lot of adhesions from the omentum which were bluntly lysed and also with the use of harmonic jessie. The infundibulum was then grasped and the cystic duct identified as well as the cystic artery. The angle of safety was then identified. The cystic duct noted to be quite small, and this was then doubly clipped proximally and another clip in the distal gallbladder area. This was divided between the distal and proximal clips. The cystic artery identified and subsequently clipped and divided with the use of the harmonic jessie close to the gallbladder. Gallbladder was then taken off of the liver bed with the use of harmonic jessie. The gallbladder was then completely removed from the liver bed and placed in an Endo-Bag and pulled out through the umbilical port. The umbilical port needed to be enlarged to allow removal of the gallbladder with at least a 2 cm stone. Following this, since there was no gross bleeding from the liver bed, all the trocars were removed and the fascial defect closed with two [id number] sutures using #0-Vicryl. Marcaine was then injected through the fascia and through all the skin incisions. All the skin incisions closed with the running subcuticular 4-0 Vicryl undyed. Steri-Strips placed over the operative sites. Needle, instrument, and sponge counts were all correct. Estimated blood loss was about less than 10 mL. The patient was brought to the recovery room in satisfactory condition. DICTATING PHYSICIAN: ZITA REED M.D. [id number] PHY#: [id number] ID: [id number] JOB#: [id number] ACCT: [id number] cc:ZITA REED M.D. > MTDD
[2018-07-31] MEDS: CEFAZOLIN SODIUM 2 GM in DEXTROSE 5%-WATER 100 ML IV SCH (17:59)
[2018-08-01] MEDS: OXYCODONE-ACETAMINOPHEN 5-325 MG TABLET PO PRN ×4 (00:10→16:07)
[2018-08-01] MEDS: HYDROMORPHONE HCL INJ/PF 2 MG/ML AMPULE IV PRN ×4 (00:11→11:37)
[2018-08-01] MEDS: CEFAZOLIN SODIUM 2 GM in DEXTROSE 5%-WATER 100 ML IV SCH ×3 (02:41→18:14)
[2018-08-01] MEDS ORDERED: KETOROLAC TROMETHAMINE INJ/PF 30 MG/1 ML SDV IV PRN (12:27)
[2018-08-01] MEDS ORDERED: KETOROLAC TROMETHAMINE INJ/PF 30 MG/1 ML SDV ONE (12:46)
[2018-08-01 16:17] LABS: ABSOLUTE BASOPHILS # (AUTO) 0.1 10^3/uL (0.0-0.2); ABSOLUTE EOSINOPHILS # (AUTO) 0.3 10^3/uL (0.0-0.6); ABSOLUTE LYMPHOCYTES (AUTO) 2.8 10^3/uL (0.5-4.7); ABSOLUTE MONOCYTES (AUTO) 0.9 10^3/uL (0.1-1.4); ABSOLUTE NEUT (AUTO) 7.7 10^3/uL (1.7-8.2); BASOPHILS % (AUTO) 0.7 % (0-2); EOSINOPHILS % (AUTO) 2.6 % (0-6); HEMATOCRIT 37.1 % (37.9-51.0); HEMOGLOBIN 12.3 g/dL (13.5-17.0); MEAN CORPUSCULAR HEMOGLOBIN 27.9 pg (27.0-33.4); MEAN CORPUSCULAR HGB CONC 33.2 g/dL (32.0-36.0); MEAN CORPUSCULAR VOLUME 84 fl (80-97); MONOCYTES % (AUTO) 7.4 % (3-13); PLATELET COUNT 339 10^3/uL (150-450); RED BLOOD COUNT 4.42 10^6/uL (4.35-5.55); RED CELL DISTRIBUTION WIDTH 13.1 % (11.5-14.0); SEGMENTED NEUTROPHILS % (AUTO) 65.3 % (42-78); TOTAL CELLS COUNTED % (AUTO) 100 %; WHITE BLOOD COUNT 11.8 10^3/uL (4.0-10.5)
[2018-08-01 16:18] VITALS: BP 139/81
[2018-08-01 16:36] LABS: ALANINE AMINOTRANSFERASE 35 U/L (21-72); ALBUMIN 3.6 g/dL (3.5-5.0); ALKALINE PHOSPHATASE 64 U/L (38-126); ANION GAP 9 (5-19); ASPARTATE AMINO TRANSFERASE 28 U/L (17-59); BILIRUBIN,DIRECT 0.3 mg/dL (0.0-0.4); BILIRUBIN,TOTAL 0.4 mg/dL (0.2-1.3); BLOOD UREA NITROGEN 17 mg/dL (7-20); CALCIUM 9.1 mg/dL (8.4-10.2); CARBON DIOXIDE 30 mmol/L (22-30); CHLORIDE 102 mmol/L (98-107); GLUCOSE 119 mg/dL (75-110); LIPASE 387.3 U/L (23-300); SODIUM 141.1 mmol/L (137-145); TOTAL PROTEIN 6.8 g/dL (6.3-8.2)
--- NOTE | 2018-08-02 12:51 | DISCHARGE SUMMARY E ---
Discharge Summary NAME: VANDANA DOUGHERTY : 1980 AGE: 37Y ADMITTED: 07/30/2018 DISCHARGED: 08/01/2018 FINAL DIAGNOSIS: CHOLELITHIASIS, acute on chronic calculus cholecystitis, history of Percocet addiction PROCEDURE: Laparoscopic cholecystectomy on 07/31/18, SURGEON: Dr. Jorge Bullock. HOSPITAL COURSE: This is a 37-year-old male who has been complaining of pains in the right upper quadrant for the past 9 months and being treated by his primary physician with Percocet for that length of time. About a month ago he was given Suboxone and stopped Percocet. His right upper quadrant pains got worse on the day of admission and ultrasound showed gallstone with a single large stone. He was tender in the right upper quadrant and was then taken to the OR for laparoscopic cholecystectomy on 07/31/2018. Postoperatively the patient did well. No complaining of pain from the epigastric area and also pains along the periumbilical area. Since he is addicted to Percocet, he would like to hold off being given a prescription for Percocet and since he still has some Suboxone he and his decided to just take the Suboxone and get a prescription for Toradol. This has been done. He was able to eat a regular diet on the day of discharge. DISCHARGE INSTRUCTIONS: He was advised to follow up with the pain management clinic if he still is in a considerable amount of pain despite the Toradol since he is a recovering Percocet addict. He was advised not to do any heavy lifting more than 10 to 15 pounds within the next 1 to 2 weeks. He was advised to follow up with the surgical clinic in 2 weeks. DICTATING PHYSICIAN: JORGE BULLOCK M.D. [id number] PHY#: [id number] ID: [id number] JOB#: [id number] ACCT: [id number] cc:JORGE BULLOCK M.D. >
== END 2018-08-01 19:49 | disposition home or self-care (01) ==
LOC: ER 13:55 → EH 19:30 → 4S 22:25
PROVIDERS: ADMIT Surgery; ATTEND Surgery
PROC: 0FT44ZZ Resection of Gallbladder, Percutaneous Endoscopic Approach (ICD-10-PCS; principal; 2018-07-31 09:00)
DX: K80.10 Calculus of gallbladder with chronic cholecystitis without obstruction (principal); F11.20 Opioid dependence, uncomplicated; E66.01 Morbid (severe) obesity due to excess calories; Z68.42 Body mass index [BMI] 45.0-49.9, adult; Z87.442 Personal history of urinary calculi
CPT/HCPCS: 96376; 99285; 96361; 96375; 96365; 36415 ×3; 83690 ×3; 85025 ×3; 85610; 80053 ×3; 81001; 88304 ×2; 76705; 94762; 47562; G0378 ×4; J2250; J3490 ×4; J0690 ×2; J1100; J1885 ×2; J3010 ×2; J2765; J1170 ×3; J0330; J2405 ×2; J7030; J2704; J2543; J0131

== ENCOUNTER 2018-10-26 22:05 | Emergency (ER) | payer SELFPAY ==
[2018-10-26] MEDS ORDERED: ASPIRIN 81 MG TABLET, CHEWABLE PO ONE (22:09)
[2018-10-26 22:42] VITALS: BP 148/89
--- NOTE | 2018-10-26 22:44 | RADIOLOGY REPORT (SQ) ---
EXAM DESCRIPTION: XR CHEST 1 VIEW COMPLETED DATE/TME: 10/26/2018 22:09 CLINICAL HISTORY: 38 years Male, chest pain COMPARISON:10/02/2017 NUMBER OF VIEWS/TECHNIQUE: 1/AP FINDINGS: Adequate lung volume, clear parenchyma, normal cardiac silhouette, and intact bony thorax. IMPRESSION: No acute cardiopulmonary findings.
--- NOTE | 2018-10-27 12:00 | EKG REPORT ---
SEVERITY:- NORMAL ECG - SINUS RHYTHM : Confirmed by: Maru Renteria 27-Oct-2018 12:00:10
== END 2018-10-26 23:01 | disposition left against medical advice (07) ==
LOC: ER 22:05
DX: Z53.21 Procedure and treatment not carried out due to patient leaving prior to being seen by health care provider (principal)
CPT/HCPCS: 71045; 93005; 93010

== ENCOUNTER 2018-12-18 22:12 | Emergency (ER) | payer SELFPAY ==
--- NOTE | 2018-12-18 22:28 | RADIOLOGY REPORT (SQ) ---
EXAM DESCRIPTION: CT HEAD WITHOUT IV CONTRAST COMPLETED DATE/TME: 12/18/2018 00:00 CLINICAL HISTORY: 38 years, Male, AMS This exam was performed according to our departmental dose-optimization program which includes automated exposure control, adjustment of the mA and/or kVp according to patient size and/or use of iterative reconstruction technique where applicable. FINDINGS: No acute intracranial hemorrhage, mass effect or midline shift. No extra-axial fluid collections. Ventricles and subarachnoid spaces are preserved. Cameron-white matter differentiation is preserved. Visualized paranasal sinuses and the mastoid air cells are clear. The skull is intact. IMPRESSION: No acute intracranial hemorrhage.
[2018-12-18] MEDS ORDERED: PROPOFOL 1,000 MG/100 ML INFUS..BTL IV ONE (22:37)
[2018-12-18] MEDS ORDERED: NORMAL SALINE 1000 ML 1,000 ML IV ONE (22:44)
--- NOTE | 2018-12-18 22:47 | RADIOLOGY REPORT (SQ) ---
EXAM DESCRIPTION: XR ANKLE 3 OR MORE VIEWS COMPLETED DATE/TME: 12/18/2018 00:00 CLINICAL HISTORY: 38 years, Male, deformity Findings: Moderately displaced distal fibula fracture. Moderately displaced medial malleolus fracture. Significant disruption of the ankle mortise with dislocation of the talus lateral relative to the distal tibia. Moderate diffuse soft tissue swelling. IMPRESSION: Medial malleolus fracture and distal fibula fracture with tibiotalar dislocation.
--- NOTE | 2018-12-18 22:53 | RADIOLOGY REPORT (SQ) ---
EXAM DESCRIPTION: XR CHEST 1 VIEW COMPLETED DATE/TME: 12/18/2018 00:00 CLINICAL HISTORY: 38 years, Male, AMS COMPARISON: 10/26/2018 chest NUMBER OF VIEWS: 1 TECHNIQUE: Portable chest LIMITATIONS: None. FINDINGS: Heart size at the upper limits of normal. This is stable. Lungs are clear. No pneumothorax IMPRESSION: No acute cardiopulmonary process copyright 2010 [employer]- All Rights Reserved
[2018-12-18 22:59] LABS: HEMATOCRIT 41.6 % (37.9-51.0); HEMOGLOBIN 14.2 g/dL (13.5-17.0); MEAN CORPUSCULAR HEMOGLOBIN 28.5 pg (27.0-33.4); MEAN CORPUSCULAR HGB CONC 34.2 g/dL (32.0-36.0); MEAN CORPUSCULAR VOLUME 84 fl (80-97); PLATELET COUNT 328 10^3/uL (150-450); RED BLOOD COUNT 4.98 10^6/uL (4.35-5.55); RED CELL DISTRIBUTION WIDTH 13.6 % (11.5-14.0); WHITE BLOOD COUNT 19.6 10^3/uL (4.0-10.5)
[2018-12-18] MEDS ORDERED: PROPOFOL INJ 200 MG/20 ML VIAL IV ONE (23:00)
--- NOTE | 2018-12-18 23:03 | ER Document Report ---
ED General - General Chief Complaint: Probable Seizure Stated Complaint: SEIZURE Time Seen by Provider: 12/18/18 22:22 Notes: Patient is a 38-year-old male with a past medical history of chronic back pain, on Suboxone as well as gabapentin, no other chronic medical problems who presents after having multiple seizures prior to arrival as well as right ankle injury. History is somewhat limited on initial presentation secondary to the illness of the patient at time of presentation. Apparently the patient was at work, states that he began to have some blurring of vision and felt somewhat lightheaded. States he overall just felt unwell. He decided to go home early because of how he was feeling. He states when he got home he went into bed. At some point he got out of the bed wanting to go to the bathroom and states that the last that he recalls. His reports that she got a phone call from him and that he was disoriented, stating that he did not feel good, and that something is wrong with his right foot. He states that because of how confused he sounded on the phone she contacted EMS. EMS found the patient to be confused and shortly after their arrival the patient again had a generalized tonic-clonic seizure lasting approximately 2 minutes. He was combative in route to the hospital and unable to be redirected or answer questions. The patient has no previous history of seizures. Denies any drug ingestions. He denies any head trauma. No fever. States that when he woke up this morning he felt fine. He currently notes a severe, throbbing, constant pain to his right ankle. Any attempt at moving the ankle worsens the pain. Nothing has improved the pain since onset. TRAVEL OUTSIDE OF THE [place] IN LAST 30 DAYS: No - Related Data Allergies/Adverse Reactions: No Known Allergies Allergy (Verified 07/28/18 10:26) Past Medical History - General Information source: Patient, Relative, Emergency Med Personnel - Social History Smoking Status: Never Smoker Chew tobacco use (# tins/day): No Frequency of alcohol use: None Drug Abuse: None Lives with: Spouse/Significant other Family History: Reviewed & Not Pertinent Patient has suicidal ideation: No Patient has homicidal ideation: No - Past Medical History Cardiac Medical History: Reports: Hx Hypercholesterolemia, Hx Hypertension Renal/ Medical History: Reports: Hx Kidney Stones. Denies: Hx Peritoneal Dialysis Psychiatric Medical History: Denies: Hx Depression Review of Systems - Review of Systems Notes: Constitutional: Negative for fever. HENT: Negative for sore throat. Eyes: Negative for visual changes. Cardiovascular: Negative for chest pain. Respiratory: Negative for shortness of breath. Gastrointestinal: Negative for abdominal pain, vomiting or diarrhea. Genitourinary: Negative for dysuria. Musculoskeletal: Positive for right ankle injury Skin: Negative for rash. Neurological: Positive for seizures 10 point ROS negative except as marked above and in HPI. Physical Exam - Vital signs Vitals: Resp Pulse Ox 18 89 L 12/18/18 22:32 12/18/18 22:32 Interpretation: Hypertensive, Tachycardic Notes: PHYSICAL EXAMINATION: GENERAL: Somewhat confused, appears to be in pain but in no acute distress HEAD: Atraumatic, normocephalic. EYES: Pupils equal round and reactive to light, extraocular movements intact, sclera anicteric, conjunctiva are normal. ENT: nares patent, oropharynx clear without exudates. Moderately dry mucous membranes. NECK: Normal range of motion, supple without lymphadenopathy LUNGS: Breath sounds clear to auscultation bilaterally and equal. No wheezes rales or rhonchi. HEART: Regular tachycardia without murmurs ABDOMEN: Soft, nontender, normoactive bowel sounds. No guarding, no rebound. No masses appreciated. EXTREMITIES: Obvious dislocation and deformity of the right ankle. The right foot is somewhat cool to palpation, capillary refill is markedly delayed in all toes of the right foot. NEUROLOGICAL: No focal neurological deficits. Moves all extremities spontaneously and on command. PSYCH: Alert, delayed in answering orientation questions. SKIN: Warm, Dry, normal turgor, no rashes or lesions noted. Course - Re-evaluation Re-evalutation: 12/18/18 23:01 Documentation is delayed as I been at this patient's bedside continuously since presentation. In summary it appears that the patient had an acute seizure while at home, no previous history of seizures. He fell to the ground and appears to have broken and dislocated his right ankle. He had a second seizure in front of EMS, generalized tonic-clonic lasting approximately 1-2 minutes. This did break spontaneously. He was noted to have sonorous respirations and a postictal phase thereafter. In route to the hospital the patient became combative while postictal and did receive midazolam. On my initial assessment the patient was extremely anxious, states that he does not recall anything that happened other than that he had try to get out of bed to go to the bathroom. His states that when he called her on the phone before EMS arrived that he did not make any sense, was stating that he did not feel good, did not sound like himself which will have prompted her to call [address] On my initial exam the patient has an obviously dislocated right ankle. The right foot is purplish in color, cool to palpation and has a very minimally palpable DP pulse. The patient was therefore immediately placed under procedural sedation using propofol. The ankle was then subsequently relocated and a long leg posterior splint with stirrup was placed. CT the head was obtained immediately upon patient's arrival and does not demonstrate any acute intracranial bleed or mass. Lab work is pending. 12/19/18 00:23 I have reassessed the patient on multiple occasions since previous dictation. Postreduction x-ray is realigned appropriately. Anatomic position present. Patient has 2+ DP pulses, capillary refill less than 1 second in all digits. Labs effectively unremarkable with exception of a leukocytosis which is likely reactive from the patient's seizures and agitation. No fever, no headache, no neck pain no focal infectious symptoms of any kind suggest a infectious etiology. Given that the patient had 2 seizures today a loading dose of levetiracetam was initiated 1500 mg. Several moments ago the nurse called me to the room. She states that she was concerned about the manner in which the gia ent was acting. The patient was noted to be effectively unresponsive, thrusting his jaw, having sonorous respirations. He did sit up at one point, looked around the room and her next confused fashion and then fell back onto the bed. He did not answer questions or respond during this time. This lasted for approximately 1 minute. There is no generalized tonic or clonic movements. Upon opening his eyes the patient was extremely confused. Struggle to tell me his last name. Cannot identify his 's name for over 1 minute. Could not tell me that we were in the hospital. This apparent possible postictal phase lasted for approximately 15 minutes and slowly resolved. However at this point I am concerned that the patient is continuing to have an additional seizure although his is clear to state that this does not look like the generalized tonic-clonic seizure he had at home. I have spoken to orthopedic surgery Dr. Mejía who states that it is okay for the patient be followed up from an outpatient perspective regarding his medial malleolar and fibular fracture. However the frequency of his seizures and that this is new onset is increasingly concerning and I have contacted [facility] to discuss with neurology and request transfer. 12/19/18 00:47 I did discuss this case with Dr. Chi the neurologist on-call at [facility]. He has advised phenytoin load in addition to the Keppra load that has ready been given. Patient will be loaded with 2500 mg of phenytoin. He will be trans ferred to [facility]. 12/19/18 01:31 Patient remains hemodynamic within acceptable limits. No further seizure activity. Phenytoin being loaded. Awaiting transfer to [facility]. 12/19/18 02:35 Phentermine continues to be loaded at the maximum infusion rate of 50 mg/min. Patient has remained without any further seizure activities. Remains in hemodynamic acceptable limits. - Vital Signs Vital signs: Temp Pulse Resp BP Pulse Ox 99.0 F 101 H 18 127/94 H 97 12/18/18 22:41 12/18/18 23:51 12/19/18 00:41 12/19/18 00:41 12/19/18 00:41 - Laboratory Result Diagrams: 12/18/18 22:40 12/18/18 22:40 Laboratory results interpreted by me: 12/18/18 12/18/18 12/18/18 22:31 22:40 22:40 WBC 19.6 H Seg Neuts % (Manual) 92 H Lymphocytes % (Manual) 4 L Abs Neuts (Manual) 18.0 H Glucose 148 H POC Glucose 145 H Urine Protein Urine Blood 12/19/18 00:15 WBC Seg Neuts % (Manual) Lymphocytes % (Manual) Abs Neuts (Manual) Glucose POC Glucose Urine Protein 30 H Urine Blood LARGE H - Diagnostic Test Radiology reviewed: Image reviewed, Reports reviewed Radiology results interpreted by me: 12/19/18 01:29 CT head: No acute intracranial bleed or mass Chest x-ray: No acute infiltrate Initial right ankle x-ray: Talotibial dislocation with distal fibula fracture Postreduction ankle x-ray: Appropriate anatomic alignment achieved. - EKG Interpretation by Me Additional EKG results interpreted by me: 12/19/18 01:29 Sinus tachycardia, rate 121. No ST elevations or depressions. QTC is 437. Procedures - Conscious Sedation Conscious sedation Time started: 22:49 Time completed: 22:59 Consent obtained: Yes Indication: Reduction right ankle dislocation and fracture Prior complications: Procedural sedation Pt with a mild systemic disease.: P2. - ASA Classification. Airway Evaluation: Neck immobility, Obese Mallampati Classification: Class 2 Used during procedure: Suction available, IV access obtained, Pulse ox on pt., clinical trial specialist on pt. Medications administered: Diprivan Reversal agents: None, Narcan I personally performed/intraservice time: Sedation, Procedure, 30 min or less Complications: No - Immobilization Right Ankle Pre-Proc Neuro Vasc Exam: Abnormal - See exam documentation Immobilizer type: Long leg posterior Performed by: Provider assisted Post-Proc Neuro Vasc Exam: Normal, Changed from pre-exam Alignment checked and good: Yes Critical Care Note - Critical Care Note Total time excluding time spent on procedures (mins): 85 Comments: Critical care time spent obtaining history from patient or surrogate, discussions with consultants, development of treatment plan with patient or surrogate, evaluation of patient's response to treatment, examination of patient, ordering and performing treatments and interventions, ordering and review of laboratory studies, re-evaluation of patient's condition, ordering and review of radiographic studies and review of old charts Discharge - Discharge Clinical Impression: Recurrent dislocation, right ankle, Status epilepticus, New onset seizure Closed fracture of right distal fibula Qualifiers: Encounter type: initial encounter Fracture morphology: unspecified fracture morphology Qualified Code(s): S82.831A - Other fracture of upper and lower end of right fibula, initial encounter for closed fracture Fracture of medial malleolus, right, closed Qualifiers: Encounter type: initial encounter Fracture alignment: displaced Qualified C ode(s): S82.51XA - Displaced fracture of medial malleolus of right tibia, initial encounter for closed fracture Condition: Fair Disposition: [facility]
[2018-12-18 23:17] LABS: ALANINE AMINOTRANSFERASE 34 U/L (21-72); ALBUMIN 4.8 g/dL (3.5-5.0); ALKALINE PHOSPHATASE 115 U/L (38-126); ANION GAP 10 (5-19); ASPARTATE AMINO TRANSFERASE 36 U/L (17-59); BILIRUBIN,DIRECT 0.2 mg/dL (0.0-0.4); BILIRUBIN,TOTAL 0.4 mg/dL (0.2-1.3); BLOOD UREA NITROGEN 12 mg/dL (7-20); CALCIUM 9.5 mg/dL (8.4-10.2); CARBON DIOXIDE 27 mmol/L (22-30); CHLORIDE 104 mmol/L (98-107); GLUCOSE 148 mg/dL (75-110); POTASSIUM 4.6 mmol/L (3.6-5.0); SODIUM 141.2 mmol/L (137-145); TOTAL PROTEIN 7.8 g/dL (6.3-8.2)
[2018-12-18 23:34] LABS: ABSOLUTE LYMPHOCYTES# (MANUAL) 0.8 10^3/uL (0.5-4.7); ABSOLUTE MONOCYTES # (MANUAL) 0.8 10^3/uL (0.1-1.4); BASOPHILS % (MANUAL) 0 % (0-2); EOSINOPHILS % (MANUAL) 0 % (0-6); LYMPHOCYTES % (MANUAL) 4 % (13-45); MONOCYTES % (MANUAL) 4 % (3-13); PLATELET COMMENT ADEQUATE; RBC MORPHOLOGY COMMENT NORMO-CYTIC/CHROMIC; SEGMENTED NEUTROPHILS % (MAN) 92 % (42-78); TOTAL CELLS COUNTED 100; TOXIC GRANULATION 1+
--- NOTE | 2018-12-18 23:36 | RADIOLOGY REPORT (SQ) ---
EXAM DESCRIPTION: XR ANKLE 2 VIEWS COMPLETED DATE/TME: 12/18/2018 00:00 CLINICAL HISTORY: 38 years, Male, post reduction COMPARISON: Prior right ankle x-ray from the same date NUMBER OF VIEWS: 2 TECHNIQUE: 2 view right ankle LIMITATIONS: None. FINDINGS: Interval improved alignment of the previously noted distal fibular fracture as well as interval reduction of the tibiotalar dislocation. Anatomic alignment of the ankle mortise. Mildly displaced fracture deformities of the anterior tibia and fibula. Associated soft tissue swelling. IMPRESSION: Interval reduction of the previously noted fracture dislocation with now near anatomic alignment. copyright 2010 [employer]- All Rights Reserved
[2018-12-18] MEDS: MORPHINE SULFATE 10 MG/ML INJ IV PRN (23:41)
[2018-12-18] MEDS ORDERED: LEVETIRACETAM 1500 MG/NACL-ISO 1,500 MG/100 ML RTUPB IV ONE (23:49)
[2018-12-18] MEDS ORDERED: LEVETIRACETAM 1000 MG/NACL-ISO 1,000 MG/100 ML RTUPB IV ONE (23:52)
[2018-12-18] MEDS ORDERED: LEVETIRACETAM 500 MG/NACL-ISO 500 MG/100 ML RTUPB IV ONE (23:53)
[2018-12-19] MEDS ORDERED: MORPHINE SULFATE 10 MG/ML INJ IV PRN (00:20)
[2018-12-19] MEDS: MORPHINE SULFATE 10 MG/ML INJ IV PRN (00:23)
[2018-12-19 00:32] LABS: APPEARANCE,URINE CLEAR; BILIRUBIN,URINE NEGATIVE (NEGATIVE); COLOR,URINE YELLOW; GLUCOSE, URINE NEGATIVE (NEGATIVE); KETONES,URINE NEGATIVE (NEGATIVE); LEUKOCYTE ESTERASE,URINE NEGATIVE (NEGATIVE); NITRITE,URINE NEGATIVE (NEGATIVE); PROTEIN,URINE 30 mg/dL (NEGATIVE); URINE SPECIFIC GRAVITY 1.014; UROBILINOGEN,URINE NEGATIVE mg/dL (<2.0)
[2018-12-19] MEDS ORDERED: PHENYTOIN SODIUM INJ/PF 250 MG/5 ML SDV IV ONE (00:41)
[2018-12-19 00:51] LABS: URINE AMPHETAMINES SCREEN NEGATIVE; URINE BARBITURATES SCREEN NEGATIVE; URINE BENZODIAZEPINES SCREEN UNCONFIRMED POSITIVE; URINE COCAINE SCREEN NEGATIVE; URINE MARIJUANA (THC) SCREEN NEGATIVE; URINE METHADONE SCREEN NEGATIVE; URINE PHENCYCLIDINE SCREEN NEGATIVE
[2018-12-19] MEDS ORDERED: PHENYTOIN SODIUM INJ/PF 250 MG/5 ML SDV ONE ×2 (01:44→01:45)
[2018-12-19 07:01] VITALS: BP 130/84
--- NOTE | 2018-12-19 07:53 | EKG REPORT ---
SEVERITY:- OTHERWISE NORMAL ECG - SINUS TACHYCARDIA : Confirmed by: Tanya Herrera MD 19-Dec-2018 07:52:37
== END 2018-12-19 08:00 | disposition short-term general hospital (02) ==
LOC: ER 22:12
PROC: 0QSGXZZ Reposition Right Tibia, External Approach (ICD-10-PCS; principal; 2018-12-18)
DX: S82.51XA Displaced fracture of medial malleolus of right tibia, initial encounter for closed fracture (principal); S82.831A Other fracture of upper and lower end of right fibula, initial encounter for closed fracture; G40.901 Epilepsy, unspecified, not intractable, with status epilepticus; H53.8 Other visual disturbances; R42 Dizziness and giddiness; W19.XXXA Unspecified fall, initial encounter; Y92.009 Unspecified place in unspecified non-institutional (private) residence as the place of occurrence of the external cause; Z79.899 Other long term (current) drug therapy; I10 Essential (primary) hypertension
CPT/HCPCS: 93005; 99291; 99292; 96361; 99152; 96374; 96375; 36415; 82962; 85025; 80053; 81001; 84484; 80307; 73600; 73610; 71045; 70450; 93010; 27762; J2270 ×2; J1165; J7030; J2704; J1953

== ENCOUNTER 2018-12-26 11:21 | Emergency (ER) | payer SELFPAY ==
[2018-12-26] MEDS ORDERED: RINGERS SOLUTION,LACTATED 1,000 ML IV ONE (11:48)
--- NOTE | 2018-12-26 11:50 | ER Document Report ---
ED Medical Screen (RME) - General Chief Complaint: Foot Pain Stated Complaint: ANKLE PAIN Time Seen by Provider: 12/26/18 11:44 TRAVEL OUTSIDE OF THE [place] IN LAST 30 DAYS: No - HPI Notes: 12/26/18 11:49 Patient with a history of seizure disorder recently seen and fall had a ankle fracture was [facility] now has an ex-fix and stating that he is in extreme pain. - Related Data Allergies/Adverse Reactions: No Known Allergies Allergy (Verified 12/26/18 11:22) Past Medical History - Past Medical History Cardiac Medical History: Reports: Hx Hypercholesterolemia, Hx Hypertension Renal/ Medical History: Reports: Hx Kidney Stones. Denies: Hx Peritoneal Dialysis Psychiatric Medical History: Denies: Hx Depression Review of Systems - Review of Systems Musculoskeletal: Muscle pain Physical Exam - Vital signs Vitals: Temp Pulse Resp BP Pulse Ox 97.6 F 95 17 140/97 H 97 12/26/18 11:34 12/26/18 11:34 12/26/18 11:34 12/26/18 11:34 12/26/18 11:34 - Respiratory Respiratory status: No respiratory distress Course - Vital Signs Vital signs: Temp Pulse Resp BP Pulse Ox 97.6 F 95 17 140/97 H 97 12/26/18 11:34 12/26/18 11:34 12/26/18 11:34 12/26/18 11:34 12/26/18 11:34
[2018-12-26] MEDS ORDERED: ONDANSETRON HCL INJ/PF 4 MG/2 ML SDV IV ONE (11:52)
[2018-12-26] MEDS ORDERED: MORPHINE SULFATE 10 MG/ML INJ IV ONE (11:52)
[2018-12-26 12:04] LABS: ABSOLUTE BASOPHILS # (AUTO) 0.1 10^3/uL (0.0-0.2); ABSOLUTE EOSINOPHILS # (AUTO) 0.1 10^3/uL (0.0-0.6); ABSOLUTE LYMPHOCYTES (AUTO) 1.7 10^3/uL (0.5-4.7); ABSOLUTE MONOCYTES (AUTO) 0.6 10^3/uL (0.1-1.4); ABSOLUTE NEUT (AUTO) 7.5 10^3/uL (1.7-8.2); BASOPHILS % (AUTO) 0.8 % (0-2); EOSINOPHILS % (AUTO) 1.4 % (0-6); HEMATOCRIT 41.4 % (37.9-51.0); HEMOGLOBIN 13.9 g/dL (13.5-17.0); LYMPHOCYTES % (AUTO) 16.5 % (13-45); MEAN CORPUSCULAR HEMOGLOBIN 28.2 pg (27.0-33.4); MEAN CORPUSCULAR HGB CONC 33.7 g/dL (32.0-36.0); MEAN CORPUSCULAR VOLUME 84 fl (80-97); MONOCYTES % (AUTO) 6.4 % (3-13); PLATELET COUNT 465 10^3/uL (150-450); RED BLOOD COUNT 4.94 10^6/uL (4.35-5.55); RED CELL DISTRIBUTION WIDTH 13.6 % (11.5-14.0); SEGMENTED NEUTROPHILS % (AUTO) 74.9 % (42-78); TOTAL CELLS COUNTED % (AUTO) 100 %
[2018-12-26 12:21] LABS: ANION GAP 12 (5-19); BLOOD UREA NITROGEN 15 mg/dL (7-20); CALCIUM 9.9 mg/dL (8.4-10.2); CARBON DIOXIDE 28 mmol/L (22-30); CHLORIDE 105 mmol/L (98-107); CREATINE KINASE 79 U/L (55-170); GLUCOSE 126 mg/dL (75-110); POTASSIUM 4.9 mmol/L (3.6-5.0); SODIUM 144.8 mmol/L (137-145)
--- NOTE | 2018-12-26 12:34 | ER Document Report ---
ED General - General Chief Complaint: Foot Pain Stated Complaint: ANKLE PAIN Time Seen by Provider: 12/26/18 11:44 TRAVEL OUTSIDE OF THE [place] IN LAST 30 DAYS: No - HPI Notes: Patient is a 38-year-old male with history of seizure disorder who presents the emergency department requesting pain management for a recently fractured dislocated right ankle that was temporarily repaired with external hardware by [facility] about 1 week ago. Patient states that his oxycodone 5/325 dosing has not been touching his pain. Patient is currently on Subutex for opioid dependence as well, but his last dose of that was prior to his transfer to [facility]. He has not noticed any other redness or purulent discharge from his ankle/foot. He is urinating and having bowel movements. No other concerns or complaints. Denies drug allergies. Denies any headache, fever, neck pain, URI, sore throat, chest pain, palpitations, syncope, cough, shortness of breath, wheeze, dyspnea, abdominal pain, nausea/vomiting/diarrhea, urinary retention, dysuria, hematuria, loss of control of bowel or bladder, numbness/tingling, s addle anesthesia, muscle paralysis, or rash. - Related Data Allergies/Adverse Reactions: No Known Allergies Allergy (Verified 12/26/18 11:22) Past Medical History - Social History Smoking Status: Never Smoker Family History: Reviewed & Not Pertinent Patient has suicidal ideation: No Patient has homicidal ideation: No - Past Medical History Cardiac Medical History: Reports: Hx Hypercholesterolemia, Hx Hypertension Neurological Medical History: Reports: Hx Seizures Renal/ Medical History: Reports: Hx Kidney Stones. Denies: Hx Peritoneal Dialysis Psychiatric Medical History: Denies: Hx Depression Past Surgical History: Reports: Hx Orthopedic Surgery - r ankle Review of Systems - Review of Systems -: Yes All other systems reviewed and negative Physical Exam - Vital signs Vitals: Temp Pulse Resp BP Pulse Ox 97.6 F 95 17 140/97 H 97 12/26/18 11:34 12/26/18 11:34 12/26/18 11:34 12/26/18 11:34 12/26/18 11:34 - Notes Notes: PHYSICAL EXAMINATION: GENERAL: Well-appearing, well-nourished and in no acute distress. HEAD: Atraumatic, normocephalic. EYES: Pupils equal round and reactive to light, extraocular movements intact, sclera anicteric, conjunctiva are normal. ENT: Nares patent and without discharge. oropharynx clear without exudates. No tonsilar hypertrophy or erythema. Moist mucous membranes. NECK: Normal range of motion, supple without lymphadenopathy LUNGS: Breath sounds clear to auscultation bilaterally and equal. No wheezes rales or rhonchi. HEART: Regular rate and rhythm without murmurs, rubs, gallops. ABDOMEN: Soft, nontender, nondistended abdomen. No guarding, no rebound. No masses appreciated. Normal bowel sounds present. No CVA tenderness bilaterally. Musculoskeletal: Rt ankle/foot: there is exertal hardware noted. Continued swelling and ecchymosis. No obvious erythema, warmth, or purulence. FROM to passive/active. Strength 5+/5. Extremities: No cyanosis, clubbing, or edema b/l. Peripheral pulses 2+. Capi llary refill less than 3 seconds. NEUROLOGICAL: sensation intact. N/V intact rt LE. PSYCH: Normal mood, normal affect. SKIN: see above. Course - Re-evaluation Re-evalutation: 12/26/18 12:30 Call placed to jace Puentes, for consult. 12/26/18 12:52 Patient is an afebrile, well-hydrated, 38-year-old male who presents emergency department with ongoing pain after surgical procedure 6 days ago. Vitals are acceptable without significant tachycardia, tachypnea, or hypoxia. PE is otherwise unremarkable for any obvious septic joint, cellulitis, or hardware malfunction. Patient is nontoxic-appearing and is tolerating p.o. without difficulty. I did review this case with Dr. Bowman as well. I did speak with the physician social human services assistants, Dhaval Keenan who recommends conservative measures otherwise for discomfort and to keep appointment with them for follow- up. They do not recommend transfer and admission for pain control. Patient does have an extensive narcotic medical history. Reviewed with the patient that I am going to stop his Percocet and switch him to morphine. Advised patient that he needs to be performing those conservative measures as his mainstay and only use this medicine for breakthrough pain. Advised patient that he will only be getting a small amount and that he will need to follow-up with his family doctor and/or orthopedics if continued to have postop pain. Recheck this week with your family doctor. Return to the ED with any other worsening/concerning symptoms as reviewed. Patient is in agreement. - Vital Signs Vital signs: Temp Pulse Resp BP Pulse Ox 97.6 F 95 15 140/97 H 97 12/26/18 11:34 12/26/18 11:34 12/26/18 12:04 12/26/18 11:34 12/26/18 11:34 - Laboratory Result Diagrams: 12/26/18 11:47 12/26/18 11:47 Laboratory results interpreted by me: 12/26/18 12/26/18 11:47 11:47 Plt Count 465 H Glucose 126 H Discharge - Discharge Clinical Impression: Post-op pain Right ankle pain Qualifiers: Chronicity: acute Qualified Code(s): M25.571 - Pain in right ankle and joints of right foot Condition: Stable Disposition: HOME, SELF-CARE Instructions: Ice & Elevation ([facility]) Additional Instructions: Rest, Ice, Compression, Elevation Tylenol/ibuprofen routinely together every 6 hours Use her narcotic medication only for breakthrough pain Light stretches daily Strength exercises as able Moist heat and massage may help F/u with your PCP in 3-5 days for a recheck Keep appointment with orthopedics as scheduled Return to the ED with any worsening symptoms and/or development of fever, headache, chest pain, palpitations, syncope, shortness of breath, trouble breathing, abdominal pain, n/v/d, muscle weakness/paralysis, numbness/tingling, swelling, redness, or other worsening symptoms that are concerning to you. Prescriptions: Morphine Sulfate [Morphine Ir 15 Mg Tablet] 1 tab PO TID #15 tablet Forms: Elevated Blood Pressure Referrals: ORTHOPEDICS [Provider Group] - Follow up as needed
[2018-12-26] MEDS ORDERED: HYDROMORPHONE HCL INJ/PF 2 MG/ML AMPULE IV ONE (12:48)
[2018-12-26 13:12] VITALS: BP 125/76
== END 2018-12-26 13:28 | disposition home or self-care (01) ==
LOC: ER 11:21
DX: G89.18 Other acute postprocedural pain (principal); M25.571 Pain in right ankle and joints of right foot; R56.9 Unspecified convulsions; E78.00 Pure hypercholesterolemia, unspecified; I10 Essential (primary) hypertension; Z87.442 Personal history of urinary calculi
CPT/HCPCS: 99283; 96374; 96375; 36415; 82550; 85025; 80048; J2270; J1170; J2405; J7120

== ENCOUNTER 2019-01-05 22:27 | Emergency (ER) | payer SELFPAY ==
--- NOTE | 2019-01-05 23:24 | RADIOLOGY REPORT (SQ) ---
EXAM DESCRIPTION: XR ANKLE 3 OR MORE VIEWS COMPLETED DATE/TME: 01/05/2019 22:43 CLINICAL HISTORY: 38 years Male, fall and R ankle pain COMPARISON: 12/18/18 FINDINGS: Interval external hardware fixation. Else, 3 images demonstrate no significant change of the previously described fracture site. 1.2 x 0.6 cm lucency at the lateral talar dome may indicate an osteochondral defect or subchondral degenerative cyst. Moderate swelling. IMPRESSION: Fracture follow-up.
[2019-01-05] MEDS ORDERED: FENTANYL CITRATE INJ/PF 100 MCG/2 ML AMPUL IV ONE (23:32)
[2019-01-06 00:24] VITALS: BP 135/93
--- NOTE | 2019-01-06 07:04 | ER Document Report ---
Entered by YUNG RUTLEDGE SCRIBE 01/05/19 2338 Acting as scribe for:JAMES TAYLOR MD ED Extremity Problem, Lower - General Chief Complaint: Ankle Pain Stated Complaint: ANKLE INJURY Time Seen by Provider: 01/05/19 22:43 Mode of Arrival: Medic Information source: Patient, Emergency Med Personnel, [facility] Records Notes: This 38-year-old male patient brought to emergency room by EMS after reinjuring his right fractured ankle. He was seen here on 12/18/2018 with a trimalleolar fracture dislocation the right ankle and seizures. He was sent to [facility]. He had external fixators placed at that time. [facility] he was standing in the bathroom try to urinate, when he slipped and stepped down hard on the right foot. He states it caused severe pain and he called 911 for transport to the emergency room. He did not hit the hardware on anything. The patient does suffer from chronic back pain and opioid dependency, he is on Subutex. He also most recently received 120 oxycodone 10 mg tablets 9 days ago. 2 days ago he received Daggett 10 mg tablets when he was at [facility] being seen to schedule his open reduction internal fixation of the ankle. He states they plan to do that next week after the swelling has subsided more. Patient received fentanyl 100 ug from EMS on the way to the hospital [facility]. TRAVEL OUTSIDE OF THE [place] IN LAST 30 DAYS: No - Related Data Allergies/Adverse Reactions: No Known Allergies Allergy (Verified 12/26/18 11:22) Past Medical History - General Information source: Patient, Emergency Med Personnel, [facility] Records - Social History Smoking Status: Never Smoker Cigarette use (# per day): No Chew tobacco use (# tins/day): No Frequency of alcohol use: None Drug Abuse: None Family History: Reviewed & Not Pertinent Patient has suicidal ideation: No Patient has homicidal ideation: No - Past Medical History Cardiac Medical History: Reports: Hx Hypercholesterolemia, Hx Hypertension Neurological Medical History: Reports: Hx Seizures Renal/ Medical History: Reports: Hx Kidney Stones. Denies: Hx Peritoneal Dialysis Psychiatric Medical History: Denies: Hx Depression Past Surgical History: Reports: Hx Orthopedic Surgery - r ankle Review of Systems - Review of Systems Constitutional: No symptoms reported EENT: No symptoms reported Cardiovascular: No symptoms reported Respiratory: No symptoms reported Gastrointestinal: No symptoms reported Genitourinary: No symptoms reported Male Genitourinary: No symptoms reported Musculoskeletal: See HPI, Joint pain - RLE Skin: No symptoms reported Hematologic/Lymphatic: No symptoms reported Neurological/Psychological: No symptoms reported -: Yes All other systems reviewed and negative Physical Exam - Vital signs Vitals: Temp 97.9 F 01/05/19 22:43 - Notes Notes: Physical Exam: General: Alert, appears well. HEENT: Normocephalic. Atraumatic. PERRL. Extraocular movements intact. Oropharynx clear. Neck: Supple. Non-tender. Respiratory: No respiratory distress. Clear and equal breath sounds bilaterally. Cardiovascular: Regular rate and rhythm. Abdominal: Normal Inspection. Non-tender. No distension. Normal Bowel Sounds. Back: Non-tender. No deformity or step off. Extremities: Upper extremities: Normal inspection. Normal ROM. Lower extremities: External fixators on the right lower extremity and ankle. Various areas of ecchymosis to the right lower extremity that appear old. Tenderness with palpation of the entire right lower leg and ankle. Neurological: Normal cognition. AAOx4. Normal speech. Psychological: Normal affect. Normal Mood. Skin: Warm. Dry. Normal color. Course - Re-evaluation Re-evalutation: 01/05/19 23:57 When I went to discharge the patient, he is requesting pain medication for use at home. He claims he does not have any medication left. He did fill a prescription for oxycodone 10 mg #120 tablets on 12/27/2018, and got #9 Daggett 10 mg tablets on 01/03/2019. He claims he took all of them. I told him he has a drug problem and he will have to see someone else to discuss that. - Vital Signs Vital signs: Temp Pulse Resp BP Pulse Ox 97.9 F 01/05/19 22:43 - Diagnostic Test Radiology reviewed: Image reviewed, Reports reviewed - X-ray shows external fixators in place without damage, trimalleolar fracture fragments are unchanged from previous x-rays. Discharge - Discharge Clinical Impression: Injury of right ankle and foot Qualifiers: Encounter type: initial encounter Qualified Code(s): S99.911A - Unspecified injury of right ankle, initial encounter; S99.921A - Unspecified injury of right foot, initial encounter Disposition: HOME, SELF-CARE I personally performed the services described in the documentation, reviewed and edited the documentation which was dictated to the scribe in my presence, and it accurately records my words and actions.
== END 2019-01-06 00:34 | disposition home or self-care (01) ==
LOC: ER 22:27
DX: S82.851D Displaced trimalleolar fracture of right lower leg, subsequent encounter for closed fracture with routine healing (principal); M79.671 Pain in right foot; M54.9 Dorsalgia, unspecified; G89.29 Other chronic pain; X58.XXXD Exposure to other specified factors, subsequent encounter; I10 Essential (primary) hypertension; Z79.899 Other long term (current) drug therapy
CPT/HCPCS: 99283; 96374; 73610; J3010